=== PATIENT | male | born 1990 | race Caucasian/White ===

== ENCOUNTER 2018-10-17 15:54 | Inpatient (IN) | payer OTHER ==
[2018-10-17 18:21] VITALS: BMI 26.1
--- NOTE | 2018-10-17 19:33 | HP ---
CIWA Score - Admission Criteria [facility] Guidelines: Admission for Medically Managed Detox: Requires at least one of the followin. CIWA greater than 12 2. Seizures within the past 24 hours 3. Delirium tremens within the past 24 hours 4. Hallucinations within the past 24 hours 5. Acute intervention needed for co occurring medical disorder 6. Acute intervention needed for co occurring psychiatric disorder 7. Severe withdrawal that cannot be handled at a lower level of care (continued vomiting, continued diarrhea, abnormal vital signs) requiring intravenous medication and/or fluids 8. Admission ROS [facility] - HPI Chief Complaint: pcp rehab Allergies/Adverse Reactions: Allergies Allergy/AdvReac Type Severity Reaction Status Date / Time No Known Allergies Allergy Unverified 10/17/18 18:11 History of Present Illness: Patient is a 28 yo M with no known PMHx, presenting here for PCP rehab, mandated by court. Smokes PCP daily. around 10 dollars worth daily. (4-5 blunts a day). Has been smoking since he was 21 years old, on and off. Last use before he was sent to nursing home on September 24. No hx of seizures. denies IV drug use. Works in [employer]. Lives in an apartment with his mother. Smokes less than a half a pack a day. Exam Limitations: No Limitations - Ebola screening Have you traveled outside of the country in the last 21 days: No (N) Have you had contact with anyone from an Ebola affected area: No Do you have a fever: No - Review of Systems Constitutional: Night Sweats Respiratory: denies: Cough, Shortness of Breath Cardiac: denies: Chest Pain, Palpitations : reports: No Symptoms Reported Patient History - Smoking Cessation Smoking history: Never smoked Have you smoked in the past 12 months: Yes Aproximately how many cigarettes per day: 4 - Substances abused PCP Substance route: Smoking Frequency: Daily Amount used: 5 blunts Age of first use: 21 Date of last use: 09/28/18 Family Disease History - Family Disease History Family History: Denies Admission Physical Exam [facility] - Vital Signs Vital Signs: Vital Signs - 24 hr 10/17/18 18:10 Temperature 99 F Pulse Rate 69 Respiratory 16 Rate Blood Pressure 136/60 - Physical General Appearance: Yes: Within Normal Limits Respiratory: Yes: No Respiratory Distress, No Accessory Muscle Use Cardiology: Yes: Regular Rhythm, S1, S2 Abdominal: Yes: Non Tender, Soft Extremities: No: Swelling - Diagnostic (1) PCP (phencyclidine) abuse Current Visit: Yes Status: Acute Cleared for Admission [facility] - Detox or Rehab [facility] Level of Care: Medically Managed Inpatient Rehab Admission - Rehab Decision to Admit Inpatient rehab admission?: Yes - Initial Determination Are CD services needed?: Yes Free of communicable disease: Yes Not in need of hospitalization: Yes - Rehab Admission Criteria Previous failed treatment: Yes Poor recovery environment: No Comorbidities: No Lacks judgement: No Patient is meeting Inpatient Rehab admission criteria:: Yes
[2018-10-17] MEDS ORDERED: MENTHOL/PHENOL 1 EACH UD MM PRN (19:37)
[2018-10-17] MEDS ORDERED: ACETAMINOPHEN 325 MG TABLET (FP) PO PRN (19:37)
[2018-10-17] MEDS ORDERED: MAGNESIUM CITRATE 300 ML BOTTLE PO PRN (19:37)
[2018-10-17] MEDS ORDERED: LOPERAMIDE HCL 2 MG CAPSULE PO PRN (19:37)
[2018-10-17] MEDS ORDERED: P-EPHED 60MG/TRIPROLIDI 2.5MG TABLET PO PRN (19:37)
[2018-10-17] MEDS ORDERED: guaiFENesin 200 MG/10 ML 10 ML UNIT-DOSE CUPS PO PRN (19:37)
[2018-10-17] MEDS ORDERED: MAGNESIUM HYDROX 2400MG/30ML ORAL SUSPENSION 30 ML CUP PO PRN (19:37)
--- NOTE | 2018-10-17 19:37 | PN ---
Teaching Attending Note Name of Resident: Angel Bush ATTENDING PHYSICIAN STATEMENT I saw and evaluated the patient. I reviewed the resident's note and discussed the case with the resident. I agree with the resident's findings and plan as documented. SUBJECTIVE: 28 yo here for [address] mandated rehab for PCP use. Pt states has not used for 2 months. OBJECTIVE: Vital Signs - 24 hr 10/17/18 18:10 Temperature 99 F Pulse Rate 69 Respiratory 16 Rate Blood Pressure 136/60 ASSESSMENT AND PLAN: pt admitted to rehab
[2018-10-17] MEDS: THIAMINE HCL 100 MG TABLET (FP) PO SCH (21:15)
[2018-10-17] MEDS: traZODone HCL 50 MG TABLET (FP) PO SCH (21:15)
[2018-10-18] MEDS: PRENATAL VITAMINS W/ FOLIC ACID TABLET (FP) PO SCH (10:10)
[2018-10-18 12:10] LABS: URINE APPEARANCE CLEAR; URINE BILIRUBIN NEGATIVE (NEGATIVE); URINE COLOR YELLOW; URINE GLUCOSE (UA) NEGATIVE (NEGATIVE); URINE KETONE NEGATIVE (NEGATIVE); URINE LEUK ESTERASE NEGATIVE (NEGATIVE); URINE NITRITE NEGATIVE (NEGATIVE); URINE PROTEIN NEGATIVE (NEGATIVE); URINE UROBILINOGEN 0.2 mg/dL (0.2-1.0)
[2018-10-18 12:11] LABS: HEMATOCRIT 45.3 % (35.4-49); HEMOGLOBIN 15.6 GM/dL (11.7-16.9); MCH 33.4 pg (25.7-33.7); MCHC 34.5 g/dl (32.0-35.9); MEAN CELL VOLUME 96.8 fl (80-96); MEAN PLT VOLUME 10.6 fl (7.5-11.1); PLATELET COUNT 170 K/MM3 (134-434); RBC 4.68 M/mm3 (4.00-5.60); RDW 13.3 % (11.9-15.9); WHITE BLOOD COUNT 7.1 K/mm3 (4.0-10.0)
[2018-10-18 12:24] LABS: ALBUMIN 4.2 g/dl (3.4-5.0); BILIRUBIN,TOTAL 0.5 mg/dL (0.2-1); BLOOD UREA NITROGEN 13.7 mg/dL (7-18); CALCIUM 9.5 mg/dL (8.5-10.1); CREATININE 1.1 mg/dL (0.55-1.3); POTASSIUM 4.1 mmol/L (3.5-5.1); TOT PROT 7.2 g/dl (6.4-8.2)
[2018-10-18] MEDS: traZODone HCL 50 MG TABLET (FP) PO SCH (21:23)
[2018-10-18] MEDS: MELATONIN 5 MG TABLETS PO PRN (21:23)
[2018-10-18] MEDS: THIAMINE HCL 100 MG TABLET (FP) PO SCH (21:24)
[2018-10-18] MEDS: IBUPROFEN 400 MG TABLET (FP) PO PRN (23:34)
[2018-10-19] MEDS: MAG HYDROX/AL HYDROX/SIMETH 30 ML UNIT-DOSE CUP PO PRN (08:40)
[2018-10-19] MEDS: PRENATAL VITAMINS W/ FOLIC ACID TABLET (FP) PO SCH (09:46)
--- NOTE | 2018-10-19 10:22 | PN ---
[facility] Progress Note Note: Vital Signs Temperature 97.3 F L 10/19/18 07:40 Pulse Rate 77 10/19/18 07:40 Respiratory Rate 18 10/19/18 07:40 Blood Pressure 125/67 10/19/18 07:40 O2 Sat by Pulse Oximetry (%) Laboratory Last Values WBC 7.1 K/mm3 (4.0-10.0) 10/18/18 09:03 RBC 4.68 M/mm3 (4.00-5.60) 10/18/18 09:03 Hgb 15.6 GM/dL (11.7-16.9) 10/18/18 09:03 Hct 45.3 % (35.4-49) 10/18/18 09:03 MCV 96.8 fl (80-96) H 10/18/18 09:03 MCH 33.4 pg (25.7-33.7) 10/18/18 09:03 MCHC 34.5 g/dl (32.0-35.9) 10/18/18 09:03 RDW 13.3 % (11.9-15.9) 10/18/18 09:03 Plt Count 170 K/MM3 (134-434) D 10/18/18 09:03 MPV 10.6 fl (7.5-11.1) 10/18/18 09:03 Sodium 144 mmol/L (136-145) 10/18/18 09:03 Potassium 4.1 mmol/L (3.5-5.1) 10/18/18 09:03 Chloride 107 mmol/L (98-107) 10/18/18 09:03 Carbon Dioxide 30 mmol/L (21-32) 10/18/18 09:03 Anion Gap 7 MMOL/L (8-16) L 10/18/18 09:03 BUN 13.7 mg/dL (7-18) 10/18/18 09:03 Creatinine 1.1 mg/dL (0.55-1.3) 10/18/18 09:03 Est GFR (CKD-EPI)AfAm 106.06 10/18/18 09:03 Est GFR (CKD-EPI)NonAf 91.51 10/18/18 09:03 Random Glucose 60 mg/dL (74-106) L 10/18/18 09:03 Calcium 9.5 mg/dL (8.5-10.1) 10/18/18 09:03 Total Bilirubin 0.5 mg/dL (0.2-1) 10/18/18 09:03 AST 44 U/L (15-37) H 10/18/18 09:03 ALT 100 U/L (13-61) H 10/18/18 09:03 Alkaline Phosphatase 219 U/L (45-117) H 10/18/18 09:03 Total Protein 7.2 g/dl (6.4-8.2) 10/18/18 09:03 Albumin 4.2 g/dl (3.4-5.0) 10/18/18 09:03 Urine Color Yellow 10/18/18 09:00 Urine Appearance Clear 10/18/18 09:00 Urine pH 5.0 (5.0-8.0) 10/18/18 09:00 Ur Specific [place] 1.015 (1.010-1.035) 10/18/18 09:00 Urine Protein Negative (NEGATIVE) 10/18/18 09:00 Urine Glucose (UA) Negative (NEGATIVE) 10/18/18 09:00 Urine Ketones Negative (NEGATIVE) 10/18/18 09:00 Urine Blood Negative (NEGATIVE) 10/18/18 09:00 Urine Nitrite Negative (NEGATIVE) 10/18/18 09:00 Urine Bilirubin Negative (NEGATIVE) 10/18/18 09:00 Urine Urobilinogen 0.2 mg/dL (0.2-1.0) 10/18/18 09:00 Ur Leukocyte Esterase Negative (NEGATIVE) 10/18/18 09:00 RPR Titer Nonreactive (NONREACTIVE) 10/18/18 09:03 labs reviewed repeat CMP
--- NOTE | 2018-10-19 11:12 | PN ---
S Progress Note Note: Vital Signs Temperature 97.3 F L 10/19/18 07:40 Pulse Rate 77 10/19/18 07:40 Respiratory Rate 18 10/19/18 07:40 Blood Pressure 125/67 10/19/18 07:40 O2 Sat by Pulse Oximetry (%) c/o insomnia w/ no improvement with trazadone 50 mg hs and melatonin requested med increase. psych consult ordered continue to monitor
[2018-10-19] MEDS: MELATONIN 5 MG TABLETS PO PRN (21:34)
[2018-10-19] MEDS: traZODone HCL 50 MG TABLET (FP) PO SCH (21:34)
[2018-10-19] MEDS: THIAMINE HCL 100 MG TABLET (FP) PO SCH (21:34)
[2018-10-20] MEDS: PRENATAL VITAMINS W/ FOLIC ACID TABLET (FP) PO SCH (10:14)
--- NOTE | 2018-10-20 17:52 | CONSULT ---
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 Patient is single, a father of four, domiciled and currently employed. Substance Abuse History: Discussed with patient. Details in current [facility] report as follows : Smoking history: Never smoked. Have you smoked in the past 12 months: Yes. Aproximately how many cigarettes per day: 4. Substances abused. PCP. Substance route: Smoking. Frequency: Daily. Amount used: 5 blunts. Age of first use: 21. Date of last use: 09/28/18 Medical History: Patient endorses good general health. Psychiatric History: Patient denies history of psychiatric hospitalizations, OPD follow-up or suicide attempts. Physical/Sexual Abuse/Trauma History: Patient denies. Additional Comment: No toxicology for review. Mental Status Exam - Mental Status Exam Alert and Oriented to: Time, Place, Person Cognitive Function: Good Patient Appearance: Well Groomed (muscular built; tattoos on both arms+ forearms ) Mood: Hopeful, Euthymic Affect: Appropriate, Normal Range Patient Behavior: Appropriate, Cooperative Speech Pattern: Clear, Appropriate Voice Loudness: Normal Thought Process: Intact, Disoriented Thought Disorder: Not Present Hallucinations: Denies Suicidal Ideation: Denies Homicidal Ideation: Denies Insight/Judgement: Fair Sleep: Poorly, Difficulty falling asleep Appetite: Good Muscle strength/Tone: Normal Gait/Station: Normal Psychiatric Findings - Problem List ([place] 1, 2,3) (1) PCP (phencyclidine) abuse Current Visit: Yes Status: Chronic (2) Nicotine dependence Current Visit: Yes Status: Chronic (3) Insomnia Current Visit: Yes Status: Chronic - Initial Treatment Plan Initial Treatment Plan: Psychoeducation. Sleep hygiene. Support. Motivational counseling. Groups. Patient indicates past history of good tolerability/ response to quetiapine. Agrees to take seroquel 50 mg po hs. Side effects/ benefits of seroquel and trazodone (already prescribed) are discussed with the patient. Mr Stein gave his verbal consent to MD. Arnold.
[2018-10-20] MEDS: THIAMINE HCL 100 MG TABLET (FP) PO SCH (21:20)
[2018-10-20] MEDS: traZODone HCL 50 MG TABLET (FP) PO SCH (21:20)
[2018-10-20] MEDS: QUEtiapine FUMARATE 50 MG TABLET PO SCH (21:20)
[2018-10-20] MEDS: MELATONIN 5 MG TABLETS PO PRN (21:20)
[2018-10-20] MEDS ORDERED: QUEtiapine FUMARATE 100 MG TABLET (FP) PO SCH (22:00)
[2018-10-21] MEDS: PRENATAL VITAMINS W/ FOLIC ACID TABLET (FP) PO SCH (10:24)
[2018-10-21] MEDS: traZODone HCL 50 MG TABLET (FP) PO SCH (21:31)
[2018-10-21] MEDS: MELATONIN 5 MG TABLETS PO PRN (21:31)
[2018-10-21] MEDS: QUEtiapine FUMARATE 50 MG TABLET PO SCH (21:31)
[2018-10-21] MEDS: THIAMINE HCL 100 MG TABLET (FP) PO SCH (21:31)
[2018-10-22] MEDS: PRENATAL VITAMINS W/ FOLIC ACID TABLET (FP) PO SCH (10:44)
[2018-10-22] MEDS: traZODone HCL 50 MG TABLET (FP) PO SCH (21:31)
[2018-10-22] MEDS: QUEtiapine FUMARATE 50 MG TABLET PO SCH (21:31)
[2018-10-22] MEDS: MELATONIN 5 MG TABLETS PO PRN (21:32)
[2018-10-22] MEDS: THIAMINE HCL 100 MG TABLET (FP) PO SCH (21:32)
--- NOTE | 2018-10-23 09:24 | PN ---
Psychiatric Progress Note Vital Signs: Vital Signs Period Temp Pulse Resp BP Sys/Ugarte Pulse Ox Last 24 Hr 97.3 F 86 16-18 108/82 Date of Session: 10/23/18 Chief Complaint:: " I'm not sleeping well." HPI: Patient admitteed to N for phencyclidine use disorder. Patient reports difficulty sleeping. ROS: Patient is coherent, alert + oriented X3. Current Medications: Active Medications Generic Name Dose Route Start Last Admin Trade Name Freq PRN Reason Stop Dose Admin Al Hydroxide/Mg Hydroxide 30 ml 10/17/18 19:37 10/19/18 08:40 Mylanta Oral Suspension - PO 30 ml Q6H PRN Administration DYSPEPSIA Eucalyptus/Menthol/Phenol/Sorbitol 1 each 10/17/18 19:37 Cepastat Lozenge - MM Q4H PRN SORE THROAT Guaifenesin 10 ml 10/17/18 19:37 Robitussin - PO Q6H PRN COUGH Ibuprofen 400 mg 10/17/18 19:37 10/18/18 23:34 Motrin - PO 400 mg Q6H PRN Administration Pain level 4-6 Loperamide HCl 4 mg 10/17/18 19:37 10/21/18 12:34 Imodium - PO 4 mg Q6H PRN Administration DIARRHEA Magnesium Citrate 300 ml 10/17/18 19:37 Citroma - PO Q48H PRN CONSTIPATION Magnesium Hydroxide 30 ml 10/17/18 19:37 Milk Of Magnesia - PO DAILY PRN CONSTIPATION Melatonin 5 mg 10/17/18 22:00 10/22/18 21:32 Melatonin PO 5 mg HS PRN Administration INSOMNIA Multivit/Folic Acid/Iron 1 tab 10/18/18 10:00 10/22/18 10:44 Vitamins (Sjr) - PO 1 tab DAILY WESLEY Administration Pseudoephedrine/Triprolidine 1 combo 10/17/18 19:37 Actifed - PO TID PRN NASAL CONGESTION Quetiapine Fumarate 50 mg 10/20/18 22:00 10/22/18 21:31 Seroquel - PO 50 mg HS WESLEY Administration Thiamine HCl 100 mg 10/17/18 22:00 10/22/18 21:32 Vitamin B1 - PO 100 mg HS WESLEY Administration Trazodone HCl 50 mg 10/17/18 22:00 10/22/18 21:31 Desyrel - PO 50 mg HS WESLEY Administration Medication(s) Change(s): Yes. Current Side Effect: No Lab tests ordered: No Lab tests reviewed: Yes Provider note:: Patient reports difficulty sleeping despite accepting seroquel 50mg + trazodone 50mg HS. Patient reports taking Seroquel 100mg HS while incarcerated and stated it was effective. Will d/c seroquel 50mg HS and will order Seroquel 100mg HS. Total face to face time:: 25 Mental Status Exam - Mental Status Exam Alert and Oriented to: Time, Place, Person Cognitive Function: Good Patient Appearance: Well Groomed Mood: Euthymic Affect: Mood Congruent Patient Behavior: Appropriate, Cooperative Speech Pattern: Appropriate Voice Loudness: Normal Thought Process: Goal Oriented Thought Disorder: Not Present Hallucinations: Denies Suicidal Ideation: Denies Homicidal Ideation: Denies Insight/Judgement: Poor Sleep: Poorly Appetite: Fair Muscle strength/Tone: Normal Gait/Station: Normal Psychiatric Treatment Plan - Problem List (1) Insomnia Current Visit: Yes (2) Nicotine dependence Current Visit: Yes (3) PCP (phencyclidine) abuse Current Visit: Yes
[2018-10-23] MEDS: PRENATAL VITAMINS W/ FOLIC ACID TABLET (FP) PO SCH (10:32)
[2018-10-23] MEDS: QUEtiapine FUMARATE 100 MG TABLET (FP) PO SCH (21:43)
[2018-10-23] MEDS: traZODone HCL 50 MG TABLET (FP) PO SCH (21:43)
[2018-10-23] MEDS: THIAMINE HCL 100 MG TABLET (FP) PO SCH (21:44)
[2018-10-23] MEDS: MELATONIN 5 MG TABLETS PO PRN (21:44)
[2018-10-24] MEDS: PRENATAL VITAMINS W/ FOLIC ACID TABLET (FP) PO SCH (10:28)
--- NOTE | 2018-10-24 10:47 | PN ---
[facility] Progress Note (SOAP) Subjective: Nurse Lisa informed this poem writer about this patient who has a burn on one of his left fingers while using the microwave in the dayroom. This poem writer saw patient who reports that he was trying to get the Styrofoam cup containing his sausage with some syrup and got burned on left 4th finger from overheated bottom of the cup. Objective: 10/24/18 10:45 Vital Signs - 24 hr 10/24/18 10/24/18 10/24/18 00:30 03:30 06:50 Temperature 97.6 F Pulse Rate 75 Respiratory 18 18 18 Rate Blood Pressure 113/60 Laboratory Tests 10/18/18 10/18/18 10/18/18 09:00 09:03 09:03 WBC 7.1 RBC 4.68 Hgb 15.6 Hct 45.3 MCV 96.8 H MCH 33.4 MCHC 34.5 RDW 13.3 Plt Count 170 D MPV 10.6 Sodium 144 Potassium 4.1 Chloride 107 Carbon Dioxide 30 Anion Gap 7 L BUN 13.7 Creatinine 1.1 Est GFR (CKD-EPI)AfAm 106.06 Est GFR (CKD-EPI)NonAf 91.51 Random Glucose 60 L Calcium 9.5 Total Bilirubin 0.5 AST 44 H ALT 100 H Alkaline Phosphatase 219 H Total Protein 7.2 Albumin 4.2 Urine Color Yellow Urine Appearance Clear Urine pH 5.0 Ur Specific [place] 1.015 Urine Protein Negative Urine Glucose (UA) Negative Urine Ketones Negative Urine Blood Negative Urine Nitrite Negative Urine Bilirubin Negative Urine Urobilinogen 0.2 Ur Leukocyte Esterase Negative RPR Titer TB (QFT) Incubation TB Test (QFT) Nil TB Test (QFT) Mitogen TB Test (QFT) Antigen TB Test (QFT) TB Positive Criteria 10/18/18 10/18/18 09:03 09:03 WBC RBC Hgb Hct MCV MCH MCHC RDW Plt Count MPV Sodium Potassium Chloride Carbon Dioxide Anion Gap BUN Creatinine Est GFR (CKD-EPI)AfAm Est GFR (CKD-EPI)NonAf Random Glucose Calcium Total Bilirubin AST ALT Alkaline Phosphatase Total Protein Albumin Urine Color Urine Appearance Urine pH Ur Specific [place] Urine Protein Urine Glucose (UA) Urine Ketones Urine Blood Urine Nitrite Urine Bilirubin Urine Urobilinogen Ur Leukocyte Esterase RPR Titer Nonreactive TB (QFT) Incubation TB Test (QFT) Nil 0.12 TB Test (QFT) Mitogen >10.00 TB Test (QFT) Antigen 0.09 TB Test (QFT) Negative TB Positive Criteria Left Hand: with small white blister faisal without liquid on proximal phalanx area of ring finger. No bleeding,redness or swelling noted. Assessment: 10/24/18 10:51 Superficial burn with small blister faisal of left 4th digit Plan: Immediate Cold water flush Apply Bacitracin ointment to affected finger bid cover with guaze dressing for maximum contact. Re-evaluate after 2-3 days and decrease frequency to daily.
[2018-10-24] MEDS ORDERED: BACITRACIN 15 GM TUBE TOPICAL OINTMENT TP SCH ×2 (11:00)
[2018-10-24] MEDS: BACITRACIN 15 GM TUBE TOPICAL OINTMENT TP SCH (21:33)
[2018-10-24] MEDS: THIAMINE HCL 100 MG TABLET (FP) PO SCH (21:35)
[2018-10-24] MEDS: MELATONIN 5 MG TABLETS PO PRN (21:35)
[2018-10-24] MEDS: traZODone HCL 50 MG TABLET (FP) PO SCH (21:35)
[2018-10-24] MEDS: QUEtiapine FUMARATE 100 MG TABLET (FP) PO SCH (21:35)
[2018-10-25] MEDS: PRENATAL VITAMINS W/ FOLIC ACID TABLET (FP) PO SCH (10:18)
[2018-10-25] MEDS: BACITRACIN 15 GM TUBE TOPICAL OINTMENT TP SCH ×2 (10:18→21:24)
--- NOTE | 2018-10-25 15:44 | PN ---
[facility] Progress Note Note: Pt c/o fluid filled blister to site of superficial burn injury on left 4th finger. denies pain. Vital Signs - 24 hr 10/25/18 10/25/18 10/25/18 00:30 03:30 07:18 Temperature 97.4 F L Pulse Rate 70 Respiratory 18 18 18 Rate Blood Pressure 117/67 Bubbled blister on left 4th finger No redness or swelling of surrounding area A/P first degree burn Blister drained and area cleaned with Betadine solution then applied bacitracin ointment and dry sterile dressing.
[2018-10-25] MEDS: MAG HYDROX/AL HYDROX/SIMETH 30 ML UNIT-DOSE CUP PO PRN (17:06)
[2018-10-25] MEDS: THIAMINE HCL 100 MG TABLET (FP) PO SCH (21:23)
[2018-10-25] MEDS: traZODone HCL 50 MG TABLET (FP) PO SCH (21:23)
[2018-10-25] MEDS: QUEtiapine FUMARATE 100 MG TABLET (FP) PO SCH (21:23)
[2018-10-25] MEDS: MELATONIN 5 MG TABLETS PO PRN (21:24)
[2018-10-26] MEDS: PRENATAL VITAMINS W/ FOLIC ACID TABLET (FP) PO SCH (10:10)
[2018-10-26] MEDS: BACITRACIN 15 GM TUBE TOPICAL OINTMENT TP SCH ×2 (10:12→21:24)
[2018-10-26] MEDS: QUEtiapine FUMARATE 100 MG TABLET (FP) PO SCH (21:24)
[2018-10-26] MEDS: traZODone HCL 50 MG TABLET (FP) PO SCH (21:24)
[2018-10-26] MEDS: THIAMINE HCL 100 MG TABLET (FP) PO SCH (21:24)
[2018-10-26] MEDS: MELATONIN 5 MG TABLETS PO PRN (21:24)
[2018-10-27] MEDS: PRENATAL VITAMINS W/ FOLIC ACID TABLET (FP) PO SCH (09:59)
[2018-10-27] MEDS: BACITRACIN 15 GM TUBE TOPICAL OINTMENT TP SCH ×2 (09:59→21:46)
[2018-10-27] MEDS: traZODone HCL 50 MG TABLET (FP) PO SCH (21:46)
[2018-10-27] MEDS: QUEtiapine FUMARATE 100 MG TABLET (FP) PO SCH (21:47)
[2018-10-27] MEDS: THIAMINE HCL 100 MG TABLET (FP) PO SCH (21:47)
[2018-10-27] MEDS: MELATONIN 5 MG TABLETS PO PRN (21:47)
[2018-10-28] MEDS: PRENATAL VITAMINS W/ FOLIC ACID TABLET (FP) PO SCH (10:11)
[2018-10-28] MEDS: BACITRACIN 15 GM TUBE TOPICAL OINTMENT TP SCH ×2 (10:11→21:32)
[2018-10-28] MEDS: QUEtiapine FUMARATE 100 MG TABLET (FP) PO SCH (21:32)
[2018-10-28] MEDS: traZODone HCL 50 MG TABLET (FP) PO SCH (21:32)
[2018-10-28] MEDS: MELATONIN 5 MG TABLETS PO PRN (21:32)
[2018-10-28] MEDS: THIAMINE HCL 100 MG TABLET (FP) PO SCH (21:33)
[2018-10-29] MEDS: PRENATAL VITAMINS W/ FOLIC ACID TABLET (FP) PO SCH (10:22)
[2018-10-29] MEDS: BACITRACIN 15 GM TUBE TOPICAL OINTMENT TP SCH ×2 (10:23→21:29)
--- NOTE | 2018-10-29 13:43 | PN ---
[facility] Progress Note Note: Pt c/o pain and tingling sensation to left elbow on flexing and twisting movements. Denies known truama but reports he has been having it for 6 to 7 months now. Pt reports he exercises and lifts weights. Pt reports itchy rash on both elbows. Vital Signs - 24 hr 10/29/18 10/29/18 10/29/18 00:30 03:30 07:07 Temperature 97.6 F Pulse Rate 81 Respiratory 18 18 18 Rate Blood Pressure 102/57 L Laboratory Tests 10/18/18 10/18/18 10/18/18 09:00 09:03 09:03 WBC 7.1 RBC 4.68 Hgb 15.6 Hct 45.3 MCV 96.8 H MCH 33.4 MCHC 34.5 RDW 13.3 Plt Count 170 D MPV 10.6 Sodium 144 Potassium 4.1 Chloride 107 Carbon Dioxide 30 Anion Gap 7 L BUN 13.7 Creatinine 1.1 Est GFR (CKD-EPI)AfAm 106.06 Est GFR (CKD-EPI)NonAf 91.51 Random Glucose 60 L Calcium 9.5 Total Bilirubin 0.5 AST 44 H ALT 100 H Alkaline Phosphatase 219 H Total Protein 7.2 Albumin 4.2 Urine Color Yellow Urine Appearance Clear Urine pH 5.0 Ur Specific [place] 1.015 Urine Protein Negative Urine Glucose (UA) Negative Urine Ketones Negative Urine Blood Negative Urine Nitrite Negative Urine Bilirubin Negative Urine Urobilinogen 0.2 Ur Leukocyte Esterase Negative RPR Titer TB (QFT) Incubation TB Test (QFT) Nil TB Test (QFT) Mitogen TB Test (QFT) Antigen TB Test (QFT) TB Positive Criteria 10/18/18 10/18/18 09:03 09:03 WBC RBC Hgb Hct MCV MCH MCHC RDW Plt Count MPV Sodium Potassium Chloride Carbon Dioxide Anion Gap BUN Creatinine Est GFR (CKD-EPI)AfAm Est GFR (CKD-EPI)NonAf Random Glucose Calcium Total Bilirubin AST ALT Alkaline Phosphatase Total Protein Albumin Urine Color Urine Appearance Urine pH Ur Specific [place] Urine Protein Urine Glucose (UA) Urine Ketones Urine Blood Urine Nitrite Urine Bilirubin Urine Urobilinogen Ur Leukocyte Esterase RPR Titer Nonreactive TB (QFT) Incubation TB Test (QFT) Nil 0.12 TB Test (QFT) Mitogen >10.00 TB Test (QFT) Antigen 0.09 TB Test (QFT) Negative TB Positive Criteria Extremities:Both upper extremities with no swelling,redness or evidence of truama. Pain on palpation of proximal extensor muscle of left elbow. Macular rash, no redness or exudates noted on elbows, RE> LE. A/P Dermatitis Muscle strain r/o tendonitis Motrin prn as directed Analgesic balm as directed hydrocortisone cream 1% apply to affected elbow areas as directed
[2018-10-29] MEDS: HYDROCORTISONE 1% TOPICAL CREAM 30 GM TUBE TP SCH ×2 (14:38→21:29)
[2018-10-29] MEDS: METHYL SALICYLATE/MENTHOL OINT 30 GM TUBE TP SCH ×2 (14:38→21:29)
[2018-10-29] MEDS: IBUPROFEN 400 MG TABLET (FP) PO PRN (18:54)
[2018-10-29] MEDS: QUEtiapine FUMARATE 100 MG TABLET (FP) PO SCH (21:28)
[2018-10-29] MEDS: THIAMINE HCL 100 MG TABLET (FP) PO SCH (21:28)
[2018-10-29] MEDS: traZODone HCL 50 MG TABLET (FP) PO SCH (21:28)
[2018-10-29] MEDS: MELATONIN 5 MG TABLETS PO PRN (21:28)
[2018-10-30] MEDS: PRENATAL VITAMINS W/ FOLIC ACID TABLET (FP) PO SCH (10:23)
[2018-10-30] MEDS: BACITRACIN 15 GM TUBE TOPICAL OINTMENT TP SCH ×2 (10:23→21:45)
[2018-10-30] MEDS: HYDROCORTISONE 1% TOPICAL CREAM 30 GM TUBE TP SCH ×2 (10:24→21:45)
[2018-10-30] MEDS: METHYL SALICYLATE/MENTHOL OINT 30 GM TUBE TP SCH ×2 (10:25→21:45)
--- NOTE | 2018-10-30 14:06 | PN ---
Psychiatric Progress Note Vital Signs: Vital Signs Period Temp Pulse Resp BP Sys/Ugarte Pulse Ox Last 24 Hr 97.4 F 82 18-18 121/68 Date of Session: 10/30/18 Chief Complaint:: " I'm not sleeping well." HPI: Patient admitted to for phencyclidine use disorder. ROS: Patient is coherent, alert + oriented X3. Current Medications: Active Medications Generic Name Dose Route Start Last Admin Trade Name Freq PRN Reason Stop Dose Admin Al Hydroxide/Mg Hydroxide 30 ml 10/17/18 19:37 10/25/18 17:06 Mylanta Oral Suspension - PO 30 ml Q6H PRN Administration DYSPEPSIA Bacitracin 1 applic 10/24/18 15:45 10/30/18 10:23 Bacitracin - TP Not Given BID WESLEY Colloidal Oatmeal 1 applic 10/29/18 13:30 Aveeno Soap - TP DAILY PRN HYGEINE Eucalyptus/Menthol/Phenol/Sorbitol 1 each 10/17/18 19:37 Cepastat Lozenge - MM Q4H PRN SORE THROAT Guaifenesin 10 ml 10/17/18 19:37 Robitussin - PO Q6H PRN COUGH Hydrocortisone 1 applic 10/29/18 14:30 10/30/18 10:24 Hytone 1% Cream - TP 1 applic BID WESLEY Administration Ibuprofen 400 mg 10/17/18 19:37 10/29/18 18:54 Motrin - PO 400 mg Q6H PRN Administration Pain level 4-6 Loperamide HCl 4 mg 10/17/18 19:37 10/21/18 12:34 Imodium - PO 4 mg Q6H PRN Administration DIARRHEA Magnesium Citrate 300 ml 10/17/18 19:37 Citroma - PO Q48H PRN CONSTIPATION Magnesium Hydroxide 30 ml 10/17/18 19:37 Milk Of Magnesia - PO DAILY PRN CONSTIPATION Melatonin 5 mg 10/17/18 22:00 10/29/18 21:28 Melatonin PO 5 mg HS PRN Administration INSOMNIA Methyl Salicylate 1 applic 10/29/18 14:30 10/30/18 10:25 Brayan-Morillo - TP 1 applic BID WESLEY Administration Multivit/Folic Acid/Iron 1 tab 10/18/18 10:00 10/30/18 10:23 Vitamins (Sjr) - PO 1 tab DAILY WESLEY Administration Pseudoephedrine/Triprolidine 1 combo 10/17/18 19:37 Actifed - PO TID PRN NASAL CONGESTION Quetiapine Fumarate 100 mg 10/23/18 22:00 10/29/18 21:28 Seroquel - PO 100 mg HS WESLEY Administration Thiamine HCl 100 mg 10/17/18 22:00 10/29/18 21:28 Vitamin B1 - PO 100 mg HS WESLEY Administration Trazodone HCl 50 mg 10/17/18 22:00 10/29/18 21:28 Desyrel - PO 50 mg HS WESLEY Administration Medication(s) Change(s): Yes Current Side Effect: No Lab tests ordered: No Lab tests reviewed: Yes Provider note:: Patient reports difficulty sleeping despite accepting seroquel 100mg + trazodone 50mg HS. Will d/c trazodone 50mg HS. Will order trazodone 100mg HS. Patient educated on the importance of sleep hygiene. Benefits and side effects discussed. Verbal consent given. Total face to face time:: 20 Mental Status Exam - Mental Status Exam Alert and Oriented to: Time, Place, Person Cognitive Function: Good Patient Appearance: Well Groomed Mood: Euthymic Affect: Mood Congruent Patient Behavior: Cooperative Speech Pattern: Appropriate Voice Loudness: Normal Thought Process: Goal Oriented Thought Disorder: Not Present Hallucinations: Denies Suicidal Ideation: Denies Homicidal Ideation: Denies Insight/Judgement: Poor Sleep: Poorly Appetite: Fair Muscle strength/Tone: Normal Gait/Station: Normal Psychiatric Treatment Plan - Problem List (1) Insomnia Current Visit: Yes (2) Nicotine dependence Current Visit: Yes (3) PCP (phencyclidine) abuse Current Visit: Yes
[2018-10-30] MEDS: COLLOIDAL OATMEAL 1 BAR EACH TP PRN (18:42)
[2018-10-30] MEDS: QUEtiapine FUMARATE 100 MG TABLET (FP) PO SCH (21:46)
[2018-10-30] MEDS: MELATONIN 5 MG TABLETS PO PRN (21:46)
[2018-10-30] MEDS: traZODone HCL 100 MG TABLET (FP) PO SCH (21:46)
[2018-10-30] MEDS: THIAMINE HCL 100 MG TABLET (FP) PO SCH (21:46)
[2018-10-31] MEDS: HYDROCORTISONE 1% TOPICAL CREAM 30 GM TUBE TP SCH ×2 (10:44→21:56)
[2018-10-31] MEDS: BACITRACIN 15 GM TUBE TOPICAL OINTMENT TP SCH ×2 (10:44→21:56)
[2018-10-31] MEDS: PRENATAL VITAMINS W/ FOLIC ACID TABLET (FP) PO SCH (10:44)
[2018-10-31] MEDS: METHYL SALICYLATE/MENTHOL OINT 30 GM TUBE TP SCH ×2 (10:44→21:56)
[2018-10-31] MEDS: MELATONIN 5 MG TABLETS PO PRN (21:57)
[2018-10-31] MEDS: THIAMINE HCL 100 MG TABLET (FP) PO SCH (21:57)
[2018-10-31] MEDS: traZODone HCL 100 MG TABLET (FP) PO SCH (21:57)
[2018-10-31] MEDS: QUEtiapine FUMARATE 100 MG TABLET (FP) PO SCH (21:57)
[2018-11-01] MEDS: BACITRACIN 15 GM TUBE TOPICAL OINTMENT TP SCH ×2 (11:00→21:38)
[2018-11-01] MEDS: METHYL SALICYLATE/MENTHOL OINT 30 GM TUBE TP SCH ×2 (11:00→21:39)
[2018-11-01] MEDS: HYDROCORTISONE 1% TOPICAL CREAM 30 GM TUBE TP SCH ×2 (11:00→21:39)
[2018-11-01] MEDS: PRENATAL VITAMINS W/ FOLIC ACID TABLET (FP) PO SCH (11:01)
[2018-11-01] MEDS: traZODone HCL 100 MG TABLET (FP) PO SCH (21:39)
[2018-11-01] MEDS: MELATONIN 5 MG TABLETS PO PRN (21:39)
[2018-11-01] MEDS: QUEtiapine FUMARATE 100 MG TABLET (FP) PO SCH (21:39)
[2018-11-01] MEDS: THIAMINE HCL 100 MG TABLET (FP) PO SCH (21:39)
[2018-11-02] MEDS: PRENATAL VITAMINS W/ FOLIC ACID TABLET (FP) PO SCH (10:34)
[2018-11-02] MEDS: METHYL SALICYLATE/MENTHOL OINT 30 GM TUBE TP SCH ×2 (10:34→21:44)
[2018-11-02] MEDS: HYDROCORTISONE 1% TOPICAL CREAM 30 GM TUBE TP SCH ×2 (10:35→21:44)
[2018-11-02] MEDS: BACITRACIN 15 GM TUBE TOPICAL OINTMENT TP SCH ×2 (10:35→21:44)
[2018-11-02] MEDS: THIAMINE HCL 100 MG TABLET (FP) PO SCH (21:44)
[2018-11-02] MEDS: MELATONIN 5 MG TABLETS PO PRN (21:44)
[2018-11-02] MEDS: QUEtiapine FUMARATE 100 MG TABLET (FP) PO SCH (21:44)
[2018-11-02] MEDS: traZODone HCL 100 MG TABLET (FP) PO SCH (21:44)
[2018-11-03] MEDS: METHYL SALICYLATE/MENTHOL OINT 30 GM TUBE TP SCH ×2 (09:49→21:37)
[2018-11-03] MEDS: BACITRACIN 15 GM TUBE TOPICAL OINTMENT TP SCH ×2 (09:49→21:37)
[2018-11-03] MEDS: PRENATAL VITAMINS W/ FOLIC ACID TABLET (FP) PO SCH (09:49)
[2018-11-03] MEDS: HYDROCORTISONE 1% TOPICAL CREAM 30 GM TUBE TP SCH ×2 (09:50→21:37)
[2018-11-03] MEDS: THIAMINE HCL 100 MG TABLET (FP) PO SCH (21:36)
[2018-11-03] MEDS: QUEtiapine FUMARATE 100 MG TABLET (FP) PO SCH (21:36)
[2018-11-03] MEDS: MELATONIN 5 MG TABLETS PO PRN (21:36)
[2018-11-03] MEDS: traZODone HCL 100 MG TABLET (FP) PO SCH (21:36)
[2018-11-03] MEDS: COLLOIDAL OATMEAL 1 BAR EACH TP PRN (21:37)
[2018-11-04] MEDS: PRENATAL VITAMINS W/ FOLIC ACID TABLET (FP) PO SCH (10:10)
[2018-11-04] MEDS: BACITRACIN 15 GM TUBE TOPICAL OINTMENT TP SCH ×2 (10:10→21:34)
[2018-11-04] MEDS: HYDROCORTISONE 1% TOPICAL CREAM 30 GM TUBE TP SCH ×2 (10:11→21:35)
[2018-11-04] MEDS: METHYL SALICYLATE/MENTHOL OINT 30 GM TUBE TP SCH ×2 (10:11→21:34)
[2018-11-04] MEDS: THIAMINE HCL 100 MG TABLET (FP) PO SCH (21:33)
[2018-11-04] MEDS: MELATONIN 5 MG TABLETS PO PRN (21:33)
[2018-11-04] MEDS: traZODone HCL 100 MG TABLET (FP) PO SCH (21:33)
[2018-11-04] MEDS: QUEtiapine FUMARATE 100 MG TABLET (FP) PO SCH (21:33)
[2018-11-05] MEDS: METHYL SALICYLATE/MENTHOL OINT 30 GM TUBE TP SCH ×2 (10:25→21:32)
[2018-11-05] MEDS: HYDROCORTISONE 1% TOPICAL CREAM 30 GM TUBE TP SCH ×2 (10:25→21:32)
[2018-11-05] MEDS: BACITRACIN 15 GM TUBE TOPICAL OINTMENT TP SCH ×2 (10:25→21:32)
[2018-11-05] MEDS: PRENATAL VITAMINS W/ FOLIC ACID TABLET (FP) PO SCH (10:25)
[2018-11-05] MEDS: MELATONIN 5 MG TABLETS PO PRN (21:32)
[2018-11-05] MEDS: QUEtiapine FUMARATE 100 MG TABLET (FP) PO SCH (21:32)
[2018-11-05] MEDS: THIAMINE HCL 100 MG TABLET (FP) PO SCH (21:32)
[2018-11-05] MEDS: traZODone HCL 100 MG TABLET (FP) PO SCH (21:32)
[2018-11-06] MEDS: BACITRACIN 15 GM TUBE TOPICAL OINTMENT TP SCH ×2 (10:42→21:26)
[2018-11-06] MEDS: PRENATAL VITAMINS W/ FOLIC ACID TABLET (FP) PO SCH (10:42)
[2018-11-06] MEDS: HYDROCORTISONE 1% TOPICAL CREAM 30 GM TUBE TP SCH ×2 (10:42→21:27)
[2018-11-06] MEDS: METHYL SALICYLATE/MENTHOL OINT 30 GM TUBE TP SCH ×2 (10:42→21:26)
[2018-11-06] MEDS: QUEtiapine FUMARATE 100 MG TABLET (FP) PO SCH (21:27)
[2018-11-06] MEDS: THIAMINE HCL 100 MG TABLET (FP) PO SCH (21:27)
[2018-11-06] MEDS: traZODone HCL 100 MG TABLET (FP) PO SCH (21:27)
[2018-11-06] MEDS: MELATONIN 5 MG TABLETS PO PRN (21:27)
[2018-11-07] MEDS: PRENATAL VITAMINS W/ FOLIC ACID TABLET (FP) PO SCH (10:27)
[2018-11-07] MEDS: METHYL SALICYLATE/MENTHOL OINT 30 GM TUBE TP SCH ×2 (10:28→21:24)
[2018-11-07] MEDS: HYDROCORTISONE 1% TOPICAL CREAM 30 GM TUBE TP SCH ×2 (10:28→21:25)
[2018-11-07] MEDS: BACITRACIN 15 GM TUBE TOPICAL OINTMENT TP SCH ×2 (10:28→21:24)
[2018-11-07] MEDS: THIAMINE HCL 100 MG TABLET (FP) PO SCH (21:24)
[2018-11-07] MEDS: QUEtiapine FUMARATE 100 MG TABLET (FP) PO SCH (21:24)
[2018-11-07] MEDS: traZODone HCL 100 MG TABLET (FP) PO SCH (21:24)
[2018-11-07] MEDS: MELATONIN 5 MG TABLETS PO PRN (21:25)
[2018-11-08 07:06] VITALS: BP 106/66; PULSE 74; TEMP 97.7
[2018-11-08] MEDS: BACITRACIN 15 GM TUBE TOPICAL OINTMENT TP SCH (10:42)
[2018-11-08] MEDS: HYDROCORTISONE 1% TOPICAL CREAM 30 GM TUBE TP SCH (10:42)
[2018-11-08] MEDS: PRENATAL VITAMINS W/ FOLIC ACID TABLET (FP) PO SCH (10:42)
[2018-11-08] MEDS: METHYL SALICYLATE/MENTHOL OINT 30 GM TUBE TP SCH (10:42)
--- NOTE | 2018-11-08 14:17 | DS ---
[facility] Rehab Discharge Summary - [facility] Rehab Discharge Summary Admission Date: 10/17/18 Discharge Date: 11/08/18 - History Present History: PCP dependence Additional Comments: Pt is a 28 y/o male with a hx of pcp and discharging today. Pt was referred from drug court. Pertinent Past History: Poor sleep hygiene - Discharge Physical Exam Vital Signs: Vital Signs Temperature 97.7 F 11/08/18 07:05 Pulse Rate 74 11/08/18 07:05 Respiratory Rate 18 11/08/18 07:05 Blood Pressure 106/66 11/08/18 07:05 O2 Sat by Pulse Oximetry (%) Pertinent Admission Physical Exam Findings: Laboratory Tests 10/18/18 10/18/18 10/18/18 09:00 09:03 09:03 WBC 7.1 RBC 4.68 Hgb 15.6 Hct 45.3 MCV 96.8 H MCH 33.4 MCHC 34.5 RDW 13.3 Plt Count 170 D MPV 10.6 Sodium 144 Potassium 4.1 Chloride 107 Carbon Dioxide 30 Anion Gap 7 L BUN 13.7 Creatinine 1.1 Est GFR (CKD-EPI)AfAm 106.06 Est GFR (CKD-EPI)NonAf 91.51 Random Glucose 60 L Calcium 9.5 Total Bilirubin 0.5 AST 44 H ALT 100 H Alkaline Phosphatase 219 H Total Protein 7.2 Albumin 4.2 Urine Color Yellow Urine Appearance Clear Urine pH 5.0 Ur Specific [place] 1.015 Urine Protein Negative Urine Glucose (UA) Negative Urine Ketones Negative Urine Blood Negative Urine Nitrite Negative Urine Bilirubin Negative Urine Urobilinogen 0.2 Ur Leukocyte Esterase Negative RPR Titer TB (QFT) Incubation TB Test (QFT) Nil TB Test (QFT) Mitogen TB Test (QFT) Antigen TB Test (QFT) TB Positive Criteria 10/18/18 10/18/18 09:03 09:03 WBC RBC Hgb Hct MCV MCH MCHC RDW Plt Count MPV Sodium Potassium Chloride Carbon Dioxide Anion Gap BUN Creatinine Est GFR (CKD-EPI)AfAm Est GFR (CKD-EPI)NonAf Random Glucose Calcium Total Bilirubin AST ALT Alkaline Phosphatase Total Protein Albumin Urine Color Urine Appearance Urine pH Ur Specific [place] Urine Protein Urine Glucose (UA) Urine Ketones Urine Blood Urine Nitrite Urine Bilirubin Urine Urobilinogen Ur Leukocyte Esterase RPR Titer Nonreactive TB (QFT) Incubation TB Test (QFT) Nil 0.12 TB Test (QFT) Mitogen >10.00 TB Test (QFT) Antigen 0.09 TB Test (QFT) Negative TB Positive Criteria - Treatment Discharge Condition: Discharge condition good Hospital Course: Rehabilitated safely and responded well Accepted aftercare referral to [facility] - Medication-Assisted Treatment (MAT) Medication-Assisted Treatment (MAT): No - Discharge Instructions Diet, activity, other medical instructions: Diet:Regular Activity:oob, ad meagan Other medical instructions:follow up with CD aftercare with [facility] @ [address] [place] [address] Follow up with Primary Care with [place], [place] as needed. - Diagnosis (1) Nicotine dependence Current Visit: Yes Status: Chronic Qualifiers: Nicotine product type: cigarettes Substance use status: uncomplicated Qualified Code(s): F17.210 - Nicotine dependence, cigarettes, uncomplicated (2) PCP (phencyclidine) abuse Current Visit: Yes Status: Chronic (3) Insomnia Current Visit: Yes Status: Chronic - Follow-up Referral Minutes to complete discharge: 15 - AMA Did Patient Leave Against Medical Advice: No Additional Comments: Pt declined psych medications stating "I'm not taking none of that stuff. I take it only when I'm here or assisted". Pt using meds for sleeping difficulty.
== END 2018-11-08 14:25 | disposition home or self-care (01) | DRG 776 ==
LOC: YASAS 15:54 → Y5N 20:02
PROVIDERS: ADMIT Neuromusculoskeletal Medicine & OMM; ATTEND Neuromusculoskeletal Medicine & OMM
PROC: HZ42ZZZ Group Counseling for Substance Abuse Treatment, Cognitive-Behavioral (ICD-10-PCS; principal; 2018-10-17)
DX: F16.10 Hallucinogen abuse, uncomplicated (principal); F17.210 Nicotine dependence, cigarettes, uncomplicated; G47.00 Insomnia, unspecified; L30.9 Dermatitis, unspecified; S46.912A Strain of unspecified muscle, fascia and tendon at shoulder and upper arm level, left arm, initial encounter; X58.XXXA Exposure to other specified factors, initial encounter; Y93.9 Activity, unspecified; Y92.9 Unspecified place or not applicable; T23.122A Burn of first degree of single left finger (nail) except thumb, initial encounter; T31.0 Burns involving less than 10% of body surface; X19.XXXA Contact with other heat and hot substances, initial encounter; Y93.G3 Activity, cooking and baking; Y92.238 Other place in hospital as the place of occurrence of the external cause
CPT/HCPCS: 36415; 80053; 81003; 85027; 86480; 86593